=== PATIENT | female | born 1930 ===

== ENCOUNTER 2016-11-21 09:23 | Inpatient (IN) | payer MEDICARE, MEDICAID ==
[2016-11-21] MEDS ORDERED: Sodium Chloride 0.9% 500 ML IV ONE ×4 (10:12→12:30)
[2016-11-21] MEDS ORDERED: Iohexol 240 (50 ml) PO STA (10:26)
[2016-11-21] MEDS ORDERED: Iohexol 240 (50 ml) ONE (10:40)
[2016-11-21 10:46] LABS: BASO % 0.5 % (0.0-2.0); EOS # 0.1 K/uL (0.0-0.7); HEMATOCRIT 37.8 % (34.0-47.0); LYMPH # 0.9 K/uL (1.0-4.3); LYMPH % 13.5 % (20.0-40.0); MEAN CELL VOLUME 81.1 fL (81.0-99.0); MEAN CORPUSCULAR HEMOGLOBIN 26.6 pg (27.0-31.0); MEAN CORPUSCULAR HGB CONC 32.7 g/dL (33.0-37.0); MEAN PLATELET VOLUME 9.9 fL (7.2-11.7); MONO # 0.4 K/uL (0.0-0.8); MONO % 5.6 % (0.0-10.0); RED CELL DISTRIBUTION WIDTH 15.3 % (11.5-14.5); WHITE BLOOD COUNT 6.8 K/uL (4.8-10.8)
[2016-11-21 10:53] LABS: ALB/GLOB RATIO 1.1 (1.0-2.1); BILIRUBIN,TOTAL 0.5 mg/dL (0.2-1.3); TOTAL PROTEIN 7.5 g/dL (6.3-8.3)
[2016-11-21 10:54] LABS: CALCIUM 9.5 mg/dl (8.6-10.4)
[2016-11-21] MEDS ORDERED: Iodixanol 320 MG/ML 100 ML BOTTLE IV ONE (11:42)
[2016-11-21 11:58] LABS: URINE BILIRUBIN NEGATIVE (NEGATIVE); URINE BLOOD 1+ (NEGATIVE); URINE COLOR Straw (YELLOW); URINE GLUCOSE (UA) NORMAL (Normal); URINE KETONE NEGATIVE (NEGATIVE); URINE LEUKOCYTE ESTERASE TRACE Leu/uL (Negative); URINE PROTEIN NEGATIVE (NEGATIVE); URINE UROBILINOGEN NORMAL mg/dL (0.2-1.0)
--- NOTE | 2016-11-21 12:16 | CT ---
CT abdomen and pelvis History: Abdominal pain. Diarrhea. Comparison: None available. Technique: Multi-echo multiplanar sequences were performed through the abdomen and pelvis without the use of intravenous contrast. Findings: Fibrotic changes at the lung bases. Scattered areas of atelectasis. 5 millimeter calcified nodule at the left lung base. No pleural or pericardial effusion. Mixed attenuation lesion measuring 1.6 centimeters at the superior aspect of the right hepatic lobe of indeterminate etiology. This may be better evaluated with a multiphasic CT or MR. Contracted gallbladder with a large calculus within the gallbladder measuring 1.3 centimeters. Spleen is preserved. Adrenal glands are preserved. Mild fatty atrophy of the pancreas. Mild thickening and/or underdistention of the proximal duodenum. Right kidney: No calculi and or hydronephrosis. Left Kidney: 6 millimeter midpole hypoechoic cystic foci. Few scattered punctate too small to characterize foci within the remainder of the left kidney. Urinary bladder is preserved. Heterogeneous uterus. Fecal retention in the colon. Mild thickening and/or underdistention of the terminal ileum. Appendix is visualized. Contrast in the proximal appendix. Appendix measures up to 6 millimeters, within normal limits in width for size. Calcification and plaque within the aorta. Few shotty para-aortic and inguinal lymph nodes. Few shotty mesenteric lymph nodes. Degenerative changes in the spine. Sclerosis of the bilateral SI joints. Minimal retrolisthesis of L4 on L5. Patchy sclerosis within the lower thoracic spine. Impression: 1. Mixed attenuation lesion demonstrating a Hounsfield unit attenuation of 122 measuring 1.6 centimeters at the superior aspect of the right hepatic lobe of indeterminate etiology. This may be better evaluated with a multiphasic CT or MR. 2. Contracted gallbladder with a large calculus within the gallbladder measuring 1.3 centimeters. 3. Mild thickening and/or underdistention of the proximal duodenum. 4. Fecal retention in the colon. 5. Mild thickening and/or underdistention of the terminal ileum. Additional findings as above.
[2016-11-21 12:17] LABS: RBC URINE 2 /hpf (0-3); WBC URINE 1 /hpf (0-5)
--- NOTE | 2016-11-21 12:33 | C.PDOC ---
History Of Present Illness 85 y/o female brought to ED by son for evaluation of lower abdominal pain associated with nausea and vomiting for the last 2 days. Pt was seen by Dr. Rajesh Barroso, who instructed patient to come to ED for evaluation. As per son, pt have been having decreased PO intake, generalized weakness. He denies fever, chills, chest pain, shortness of breath, cough, diarrhea, dysuria, hematuria. Time Seen by Provider: 11/21/16 09:29 Chief Complaint (Nursing): Abdominal Pain History Per: Family (son at bedside ) History/Exam Limitations: language barrier Onset/Duration Of Symptoms: Days (2) Current Symptoms Are (Timing): Still Present Severity: Moderate Location Of Pain/Discomfort: RLQ, LLQ, Suprapubic Radiation Of Pain To:: None Quality Of Discomfort: "Pain" Associated Symptoms: Nausea, Vomiting, Loss Of Appetite. denies: Fever, Chills , Diarrhea, Back Pain, Chest Pain, Constipation, Urinary Symptoms Exacerbating Factors: None Alleviating Factors: None Recent travel outside of the [place]: No Additional History Per: Patient Abnormal Vaginal Bleeding: No Past Medical History Reviewed: Historical Data, Nursing Documentation, Vital Signs Vital Signs: Last Vital Signs Temp 98.4 F 11/23/16 15:35 Pulse 70 11/23/16 15:35 Resp 20 11/23/16 15:35 BP 131/73 11/23/16 15:35 Pulse Ox 98 11/23/16 15:35 - Medical History PMH: HTN Family History: States: No Known Family Hx - Social History Hx Alcohol Use: No Hx Substance Use: No - Immunization History Hx Tetanus Toxoid Vaccination: No Hx Influenza Vaccination: No Hx Pneumococcal Vaccination: No Review Of Systems Except As Marked, All Systems Reviewed And Found Negative. Constitutional: Positive for: Weakness. Negative for: Fever, Chills Cardiovascular: Negative for: Chest Pain, Palpitations Respiratory: Negative for: Cough, Shortness of Breath Gastrointestinal: Positive for: Nausea, Vomiting, Abdominal Pain. Negative for : Diarrhea, Constipation Genitourinary: Negative for: Dysuria, Frequency, Hematuria, Vaginal Discharge, Vaginal Bleeding Musculoskeletal: Negative for: Back Pain Neurological: Negative for: Weakness, Numbness, Headache, Dizziness Physical Exam - Physical Exam Appears: Well, Non-toxic, No Acute Distress Skin: Warm, Dry, No Rash Head: Normacephalic Eye(s): bilateral: Normal Inspection Oral Mucosa: Moist Neck: Supple Cardiovascular: Rhythm Regular Respiratory: Normal Breath Sounds, No Rales, No Rhonchi, No Wheezing Gastrointestinal/Abdominal: Bowel Sounds, Soft, Tenderness (suprapubic, LLQ TTP) , No Distention, No Guarding, No Rebound Back: No CVA Tenderness Extremity: Normal ROM, No Pedal Edema Neurological/Psych: Oriented x3, Normal Speech ED Course And Treatment - Laboratory Results Result Diagrams: 11/23/16 07:47 11/23/16 07:47 O2 Sat by Pulse Oximetry: 99 (on RA) Pulse Ox Interpretation: Normal - CT Scan/US Abd & Pelvis CT Other Rad Studies (CT/US): Read By Radiologist, Radiology Report Reviewed CT/US Interpretation: Accession No. : [id number]. Patient Name / ID : CÉSAR MONROE / [id number]. Exam Date : 11/21/2016 11:47:44 ( Approved ). Study Comment : Sex / Age : F / 85Y. Creator : Mikhail Barron MD. Dictator : Mikhail Barron MD. Hoistman : Freezing Room Worker : Mikhail Barron MD. Approver2 : Report Date : 11/21/2016 12:15:19. My Comment : . CT abdomen and pelvis. History: Abdominal pain. Diarrhea. Comparison: None available. Technique: Multi-echo multiplanar sequences were performed through the abdomen and pelvis without the use of intravenous contrast. Findings: Fibrotic changes at the lung bases. Scattered areas of atelectasis. 5 millimeter calcified nodule at the left lung base. No pleural or pericardial effusion. Mixed attenuation lesion measuring 1.6 centimeters at the superior aspect of the right hepatic lobe of indeterminate etiology. This may be better evaluated with a multiphasic CT or MR. Contracted gallbladder with a large calculus within the gallbladder measuring 1.3 centimeters. Spleen is preserved. Adrenal glands are preserved. Mild fatty atrophy of the pancreas. Mild thickening and/or underdistention of the proximal duodenum. Right kidney: No calculi and or hydronephrosis. Left Kidney: 6 millimeter midpole hypoechoic cystic foci. Few scattered punctate too small to characterize foci within the remainder of the left kidney. Urinary bladder is preserved. Heterogeneous uterus. Fecal retention in the colon. Mild thickening and/or underdistention of the terminal ileum. Appendix is visualized. Contrast in the proximal appendix. Appendix measures up to 6 millimeters, within normal limits in width for size. Calcification and plaque within the aorta. Few shotty para-aortic and inguinal lymph nodes. Few shotty mesenteric lymph nodes. Degenerative changes in the spine. Sclerosis of the bilateral SI joints. Minimal retrolisthesis of L4 on L5. Patchy sclerosis within the lower thoracic spine. Impression: 1. Mixed attenuation lesion demonstrating a Hounsfield unit attenuation of 122 measuring 1.6 centimeters at the superior aspect of the right hepatic lobe of indeterminate etiology. This may be better evaluated with a multiphasic CT or MR. 2. Contracted gallbladder with a large calculus within the gallbladder measuring 1.3 centimeters. 3. Mild thickening and/or underdistention of the proximal duodenum. 4. Fecal retention in the colon. 5. Mild thickening and/or underdistention of the terminal ileum. Additional findings as above. Progress Note: Blood work, UA, Abd & pelvis CT ordered and reviewed. Patient has several episodes of diarrhea in ED - Stool culture, ova and parasite, C diff toxin, stool leukocytes ordered. Patient was given IV NS bolus. - Physician Consult Information Physician Contacted: Meron Barroso Outcome Of Conversation: Discussed patient with PMD, he would like her admitted for dehydration, diarrhea, elevated Bun, duodenal/ileal thickening. Disposition - Disposition Disposition: HOSPITALIZED Disposition Time: 12:39 Condition: STABLE - Clinical Impression Clinical Impression: Dehydration, Generalized weakness, Mural thickening of small intestine, Elevated BUN - Scribe Statement The provider has reviewed the documentation as recorded by the Edin Barroso All medical record entries made by the Edin were at my direction and personally dictated by me. I have reviewed the chart and agree that the record accurately reflects my personal performance of the history, physical exam, medical decision making, and the department course for this patient. I have also personally directed, reviewed, and agree with the discharge instructions and disposition. Decision To Admit - Pt Status Changed To: Hospital Disposition Of: Inpatient - Admit Certification Admit to Inpatient:: After my assessment, the patient will require hospitalization for at least two midnights. This is because of the severity of symptoms shown, intensity of services needed, and/or the medical risk in this patient being treated as an outpatient. - InPatient: Physician Admission Certification:: see notes - . Bed Request Type: Regular Admitting Physician: Meron Barroso Patient Diagnosis: Dehydration, Generalized weakness, Elevated BUN, Mural thickening of small intestine
--- NOTE | 2016-11-21 18:50 | CP.PCM.HP ---
Present on Admission - Present on Admission Any Indicators Present on Admission: No Past Patient History - Past Medical History & Family History Past Medical History?: Yes - Past Social History Smoking Status: Never Smoked - CARDIAC Hx Hypertension: Yes - PULMONARY Hx Respiratory Disorders: No - NEUROLOGICAL Hx Neurological Disorder: No - HEENT Hx Cataracts: Yes - RENAL Hx Chronic Kidney Disease: No - ENDOCRINE/METABOLIC Hx Endocrine Disorders: No - HEMATOLOGICAL/ONCOLOGICAL Hx Blood Disorders: No - INTEGUMENTARY Hx Dermatological Problems: No - MUSCULOSKELETAL/RHEUMATOLOGICAL Hx Falls: No - GASTROINTESTINAL Hx Gastrointestinal Disorders: Yes Hx Constipation: Yes Hx Gastroesophageal Reflux: Yes - GENITOURINARY/GYNECOLOGICAL Hx Genitourinary Disorders: No - PSYCHIATRIC Hx Psychophysiologic Disorder: No Hx Substance Use: No - SURGICAL HISTORY Hx Surgeries: Yes Hx Cataract Extraction: Yes (BOTH EYES) - ANESTHESIA Hx Anesthesia: Yes Hx Anesthesia Reactions: No Hx Malignant Hyperthermia: No Has any member of the family had a problem w/ anesthesia?: No Meds Allergies/Adverse Reactions: Allergies Allergy/AdvReac Type Severity Reaction Status Date / Time No Known Allergies Allergy Verified 11/21/16 09:32 Physical Exam - Constitutional Appears: Well - Head Exam Head Exam: ATRAUMATIC, NORMAL INSPECTION, NORMOCEPHALIC - Eye Exam Eye Exam: EOMI, Normal appearance, PERRL - ENT Exam ENT Exam: Mucous Membranes Moist, Normal Exam - Neck Exam Neck exam: Positive for: Normal Inspection - Respiratory Exam Respiratory Exam: Decreased Breath Sounds - Cardiovascular Exam Cardiovascular Exam: REGULAR RHYTHM - GI/Abdominal Exam GI & Abdominal Exam: Diminished Bowel Sounds - Rectal Exam Rectal Exam: Deferred Results - Vital Signs Recent Vital Signs: Last Vital Signs Temp 97.5 F L 11/21/16 15:15 Pulse 86 11/21/16 15:15 Resp 20 11/21/16 15:15 BP 197/88 H 11/21/16 15:15 Pulse Ox 98 11/21/16 15:15 - Labs Result Diagrams: 11/21/16 10:39 11/21/16 10:39 Labs: Laboratory Results - last 24 hr 11/21/16 11/21/16 11/21/16 10:39 10:39 11:31 WBC 6.8 RBC 4.65 Hgb 12.4 Hct 37.8 MCV 81.1 MCH 26.6 L MCHC 32.7 L RDW 15.3 H Plt Count 171 MPV 9.9 Neut % (Auto) 79.4 H Lymph % (Auto) 13.5 L Stanley % (Auto) 5.6 Eos % (Auto) 1.0 Baso % (Auto) 0.5 Neut # 5.4 Lymph # 0.9 L Stanley # 0.4 Eos # 0.1 Baso # 0.0 Sodium 141 Potassium 5.0 Chloride 105 Carbon Dioxide 19 L Anion Gap 22 H BUN 19 H Creatinine 1.1 Est GFR ( Amer) 57 Est GFR (Non-Af Amer) 47 Random Glucose 98 Calcium 9.5 Total Bilirubin 0.5 AST 35 ALT 30 Alkaline Phosphatase 57 Total Protein 7.5 Albumin 4.0 Globulin 3.5 Albumin/Globulin Ratio 1.1 Lipase 78 Urine Color Straw Urine Clarity Clear Urine pH 5.0 Ur Specific [place] 1.005 Urine Protein Negative Urine Glucose (UA) Normal Urine Ketones Negative Urine Blood 1+ H Urine Nitrate Negative Urine Bilirubin Negative Urine Urobilinogen Normal Ur Leukocyte Esterase Trace Urine WBC (Auto) 1 Urine RBC (Auto) 2 Ur Squamous Epith Cells 1
[2016-11-22] MEDS: Pantoprazole 20 mg EC Tab PO SCH (10:07)
--- NOTE | 2016-11-22 10:20 | CP.PCM.CON ---
<Karma Solorzano - Last Filed: 11/22/16 10:13> History of Present Illness - History of Present Illness History of Present Illness: GI Fellow PGY4 Consult Note This is a 85yF with pmhx of HTN and heartburn presenting to the ED with complaints of diffuse abdominal pain and one episode of vomiting at home which started yesterday. Pt reports that she has severe constipation at home and has a BM 2-3 after taking medication and even when she does go she has to strain. Pt denies any diarrhea but per nursing pt has one episode of large watery diarrhea this am. Pt denies any further emesis and is tolerating breakfast this morning. Pt is still complaining of diffuse abdominal pain not associated with food intake. Pt has a CT scan done with contrast that shows a liver lesion, fecal retention, gall bladder with large stone. Stool study for C.diff was negative. Pt denies any fevers, chills nausea or vomiting at this time. ROS: A 12pt ROS was obtained and was negative except as above PmHx: HTN, heartburn PsHx: Denies SHx: Denies tobacco, ETOH FHx: Denies Past Patient History - Past Medical History & Family History Past Medical History?: Yes - Past Social History Smoking Status: Never Smoked - CARDIAC Hx Hypertension: Yes - PULMONARY Hx Respiratory Disorders: No - NEUROLOGICAL Hx Neurological Disorder: No - HEENT Hx Cataracts: Yes - RENAL Hx Chronic Kidney Disease: No - ENDOCRINE/METABOLIC Hx Endocrine Disorders: No - HEMATOLOGICAL/ONCOLOGICAL Hx Blood Disorders: No - INTEGUMENTARY Hx Dermatological Problems: No - MUSCULOSKELETAL/RHEUMATOLOGICAL Hx Falls: No - GASTROINTESTINAL Hx Gastrointestinal Disorders: Yes Hx Constipation: Yes Hx Gastroesophageal Reflux: Yes - GENITOURINARY/GYNECOLOGICAL Hx Genitourinary Disorders: No - PSYCHIATRIC Hx Psychophysiologic Disorder: No Hx Substance Use: No - SURGICAL HISTORY Hx Surgeries: Yes Hx Cataract Extraction: Yes (BOTH EYES) - ANESTHESIA Hx Anesthesia: Yes Hx Anesthesia Reactions: No Hx Malignant Hyperthermia: No Has any member of the family had a problem w/ anesthesia?: No Meds Allergies/Adverse Reactions: Allergies Allergy/AdvReac Type Severity Reaction Status Date / Time No Known Allergies Allergy Verified 11/21/16 09:32 - Medications Medications: Current Medications Losartan Potassium (Cozaar) 100 mg PO DAILY [facility] Last Admin: 11/22/16 10:07 Dose: 100 mg Pantoprazole Sodium (Protonix Ec Tab) 20 mg PO DAILY [facility] Last Admin: 11/22/16 10:07 Dose: 20 mg Physical Exam - Constitutional Appears: Non-toxic, No Acute Distress - Head Exam Head Exam: ATRAUMATIC, NORMAL INSPECTION, NORMOCEPHALIC - Eye Exam Eye Exam: EOMI, Normal appearance, PERRL Pupil Exam: PERRL - ENT Exam ENT Exam: Mucous Membranes Moist, Normal Exam - Neck Exam Neck exam: Positive for: Normal Inspection - Respiratory Exam Respiratory Exam: Clear to Auscultation Bilateral, NORMAL BREATHING PATTERN - Cardiovascular Exam Cardiovascular Exam: RRR, +S1, +S2 - GI/Abdominal Exam GI & Abdominal Exam: Normal Bowel Sounds, Soft, Tenderness. absent: Distended, Firm, Guarding, Organomegaly, Rigid - Rectal Exam Rectal Exam: Deferred - Extremities Exam Extremities exam: Positive for: full ROM, normal inspection. Negative for: pedal edema - Back Exam Back exam: NORMAL INSPECTION - Neurological Exam Neurological exam: Alert, Oriented x3 - Psychiatric Exam Psychiatric exam: Normal Affect, Normal Mood - Skin Skin Exam: Dry, Intact, Normal Color, Warm Results - Vital Signs Recent Vital Signs: Last Vital Signs Temp 98.4 F 11/22/16 07:19 Pulse 78 11/22/16 07:19 Resp 20 11/22/16 07:19 BP 193/83 H 11/22/16 07:19 Pulse Ox 95 11/22/16 07:19 - Labs Result Diagrams: 11/21/16 10:39 11/21/16 10:39 Labs: Laboratory Results - last 24 hr 11/21/16 11/21/16 11/21/16 10:39 10:39 11:31 WBC 6.8 RBC 4.65 Hgb 12.4 Hct 37.8 MCV 81.1 MCH 26.6 L MCHC 32.7 L RDW 15.3 H Plt Count 171 MPV 9.9 Neut % (Auto) 79.4 H Lymph % (Auto) 13.5 L Scott % (Auto) 5.6 Eos % (Auto) 1.0 Baso % (Auto) 0.5 Neut # 5.4 Lymph # 0.9 L Scott # 0.4 Eos # 0.1 Baso # 0.0 Sodium 141 Potassium 5.0 Chloride 105 Carbon Dioxide 19 L Anion Gap 22 H BUN 19 H Creatinine 1.1 Est GFR ( Amer) 57 Est GFR (Non-Af Amer) 47 Random Glucose 98 Calcium 9.5 Total Bilirubin 0.5 AST 35 ALT 30 Alkaline Phosphatase 57 Total Protein 7.5 Albumin 4.0 Globulin 3.5 Albumin/Globulin Ratio 1.1 Lipase 78 Urine Color Straw Urine Clarity Clear Urine pH 5.0 Ur Specific [place] 1.005 Urine Protein Negative Urine Glucose (UA) Normal Urine Ketones Negative Urine Blood 1+ H Urine Nitrate Negative Urine Bilirubin Negative Urine Urobilinogen Normal Ur Leukocyte Esterase Trace Urine WBC (Auto) 1 Urine RBC (Auto) 2 Ur Squamous Epith Cells 1 Stool Leukocytes, Qual C. difficile Ag & Toxin 11/21/16 11/21/16 13:00 13:00 WBC RBC Hgb Hct MCV MCH MCHC RDW Plt Count MPV Neut % (Auto) Lymph % (Auto) Scott % (Auto) Eos % (Auto) Baso % (Auto) Neut # Lymph # Scott # Eos # Baso # Sodium Potassium Chloride Carbon Dioxide Anion Gap BUN Creatinine Est GFR ( Amer) Est GFR (Non-Af Amer) Random Glucose Calcium Total Bilirubin AST ALT Alkaline Phosphatase Total Protein Albumin Globulin Albumin/Globulin Ratio Lipase Urine Color Urine Clarity Urine pH Ur Specific [place] Urine Protein Urine Glucose (UA) Urine Ketones Urine Blood Urine Nitrate Urine Bilirubin Urine Urobilinogen Ur Leukocyte Esterase Urine WBC (Auto) Urine RBC (Auto) Ur Squamous Epith Cells Stool Leukocytes, Qual Negative C. difficile Ag & Toxin Negative Assessment & Plan - Assessment and Plan (Free Text) Assessment: This is a 85yF presenting with abdominal pain and vomiting for one day. 1. Abdominal Pain 2. Diarrhea 3. Hx of constipation- fecal retention on CT scan 4. Liver lesion 5. Cholelithiasis on CT scan Plan: -Continue supportive care and avoid narcotics -Will order Abdominal Us for cholelithiasis on CT scan -Waiting for stool studies to come back C diff is negative -If no further diarrhea and concern for constipation with fecal retention on CT and hx, will start on bowel regime with miralax daily -Liver lesion-will order hepatitis panel, AFP and will need oupt workup -Continue regular diet -Will continue to follow pt closely <Brad Syed - Last Filed: 11/22/16 10:34> Meds - Medications Medications: Current Medications Losartan Potassium (Cozaar) 100 mg PO DAILY [facility] Last Admin: 11/22/16 10:07 Dose: 100 mg Pantoprazole Sodium (Protonix Ec Tab) 20 mg PO DAILY [facility] Last Admin: 11/22/16 10:07 Dose: 20 mg Results - Vital Signs Recent Vital Signs: Last Vital Signs Temp 98.4 F 11/22/16 07:19 Pulse 78 11/22/16 07:19 Resp 20 11/22/16 07:19 BP 193/83 H 11/22/16 07:19 Pulse Ox 95 11/22/16 07:19 - Labs Result Diagrams: 11/21/16 10:39 11/21/16 10:39 Labs: Laboratory Results - last 24 hr 11/21/16 11/21/16 11/21/16 10:39 10:39 11:31 WBC 6.8 RBC 4.65 Hgb 12.4 Hct 37.8 MCV 81.1 MCH 26.6 L MCHC 32.7 L RDW 15.3 H Plt Count 171 MPV 9.9 Neut % (Auto) 79.4 H Lymph % (Auto) 13.5 L Scott % (Auto) 5.6 Eos % (Auto) 1.0 Baso % (Auto) 0.5 Neut # 5.4 Lymph # 0.9 L Scott # 0.4 Eos # 0.1 Baso # 0.0 Sodium 141 Potassium 5.0 Chloride 105 Carbon Dioxide 19 L Anion Gap 22 H BUN 19 H Creatinine 1.1 Est GFR ( Amer) 57 Est GFR (Non-Af Amer) 47 Random Glucose 98 Calcium 9.5 Total Bilirubin 0.5 AST 35 ALT 30 Alkaline Phosphatase 57 Total Protein 7.5 Albumin 4.0 Globulin 3.5 Albumin/Globulin Ratio 1.1 Lipase 78 Urine Color Straw Urine Clarity Clear Urine pH 5.0 Ur Specific [place] 1.005 Urine Protein Negative Urine Glucose (UA) Normal Urine Ketones Negative Urine Blood 1+ H Urine Nitrate Negative Urine Bilirubin Negative Urine Urobilinogen Normal Ur Leukocyte Esterase Trace Urine WBC (Auto) 1 Urine RBC (Auto) 2 Ur Squamous Epith Cells 1 Stool Leukocytes, Qual C. difficile Ag & Toxin 11/21/16 11/21/16 13:00 13:00 WBC RBC Hgb Hct MCV MCH MCHC RDW Plt Count MPV Neut % (Auto) Lymph % (Auto) Scott % (Auto) Eos % (Auto) Baso % (Auto) Neut # Lymph # Scott # Eos # Baso # Sodium Potassium Chloride Carbon Dioxide Anion Gap BUN Creatinine Est GFR ( Amer) Est GFR (Non-Af Amer) Random Glucose Calcium Total Bilirubin AST ALT Alkaline Phosphatase Total Protein Albumin Globulin Albumin/Globulin Ratio Lipase Urine Color Urine Clarity Urine pH Ur Specific [place] Urine Protein Urine Glucose (UA) Urine Ketones Urine Blood Urine Nitrate Urine Bilirubin Urine Urobilinogen Ur Leukocyte Esterase Urine WBC (Auto) Urine RBC (Auto) Ur Squamous Epith Cells Stool Leukocytes, Qual Negative C. difficile Ag & Toxin Negative Attending/Attestation - Attestation I have personally seen and examined this patient.: Yes I have fully participated in the care of the patient.: Yes I have reviewed all pertinent clinical information: Yes Notes (Text): 11/22/16 10:27 I have seen and examined patient with GI fellow. Agree with above documentation with the following additions. In brief, this is an 85 year old female with history of HTN who presents to hospital with complaint of abdominal pain, vomiting, and change in bowel habits beginning one day ago. She describes an epigastric, sharp pain that radiates to RUQ and was associated with one episode of non-bloody emesis yesterday. The pain does not seem to be related to food consumption. She denies fever/chills, weight loss, rectal bleeding, sick contacts, or recent travel history. She is typically constipated at home and has a bowel movement once every 2-3 days though she has now developed loose watery diarrhea. No prior endoscopic evaluation. Family history: reviewed, patient denies history of colon cancer HTN Abdominal pain Diarrhea CT imaging reviewed by me showing large gallbladder calculus, distended stomach , thickening of terminal ileum, and left sided fecal retention. Also noted is a 1.6 cm hepatic lesion of unclear etiology. - Liquid diet as tolerated - Obtain stool studies (culture, c-difficile, O/P) - LFTs normal, obtain viral hepatitis panel, AFP. Patient will eventually benefit from triple phase liver imaging for further evaluation, which can be performed electively as outpatient. - Obtain abdominal US given ongoing RUQ abdominal pain with large GB calculus, consider surgical consultation - Will continue to monitor patient clinical course
--- NOTE | 2016-11-22 17:40 | US ---
Abdominal ultrasound History: Liver lesion. Cholelithiasis. Comparison: CT abdomen and pelvis dated 11/21/2016 Technique: Real-time sonography was performed through the abdomen. Findings: Liver: 10.3 centimeters in length. Increased echogenicity of the hepatic parenchymal cortex suggestive for fatty infiltration versus hepatic parenchymal disease. Liver lesion seen on recent CT scan was not well imaged or documented on this study. Further evaluation with a multiphasic CT or MR may be helpful for further evaluation. Gallbladder: Cholelithiasis with prominent gallbladder calculus measuring up to 2 centimeters. Normal wall thickness of 1.5 millimeters. Negative sonographic Levine's sign. Common bile duct measures 3.3 millimeters, within normal limits. Pancreas not well visualized. Spleen measures 10.4 centimeters in length, within normal limits. Visualized aorta and IVC are preserved. Right kidney: 7.6 x 3.6 x 4.4 centimeters. No calculi or hydronephrosis. Left kidney: 7.7 x 4.1 x 4.2 centimeters. Small hypoechoic focus which measures 7 x 7 x 9 millimeters with peripheral punctate echogenic foci. This may represent a small cyst with peripheral punctate calcification. This may be better evaluated with multiphasic CT scan. Impression: Very limited study secondary to gas distention of the patient and patient body habitus. Diffuse increased echogenicity of the hepatic parenchyma suggestive for fatty infiltration versus hepatic parenchymal disease. Clinical correlation. Liver lesion seen on CT scan was not well documented or appreciated on this study. Further evaluation with multiphasic CT or MR may be helpful if clinically indicated for further evaluation. Cholelithiasis with prominent gallbladder calculus measuring up to 2 centimeters. No gross wall thickening or edema. Pancreas not well visualized. 9 millimeter hypoechoic focus seen within the left kidney with peripheral punctate echogenic foci. This is of uncertain clinical etiology and may represent a small cyst with punctate peripheral calcification. Interval followup ultrasound and or correlation with multiphasic CT may be helpful for further evaluation if clinically indicated.
--- NOTE | 2016-11-22 17:49 | CP.PCM.PN ---
Subjective - Date & Time of Evaluation Date of Evaluation: 11/22/16 Time of Evaluation: 08:20 - Subjective Subjective: clinically same Objective - Vital Signs/Intake and Output Vital Signs (last 24 hours): Temp Pulse Resp BP Pulse Ox 97.9 F 80 20 203/70 H 98 11/22/16 15:00 11/22/16 15:00 11/22/16 15:00 11/22/16 15:00 11/22/16 15:00 Intake and Output: 11/22/16 11/22/16 06:59 18:59 Intake Total 200 400 Balance 200 400 - Medications Medications: Current Medications Enoxaparin Sodium (Lovenox) 40 mg SC DAILY [facility] Losartan Potassium (Cozaar) 100 mg PO DAILY [facility] Last Admin: 11/22/16 10:07 Dose: 100 mg Pantoprazole Sodium (Protonix Ec Tab) 20 mg PO DAILY [facility] Last Admin: 11/22/16 10:07 Dose: 20 mg Zolpidem Tartrate (Ambien) 5 mg PO HS PRN PRN Reason: Insomnia - Labs Labs: 11/21/16 10:39 11/21/16 10:39 - Constitutional Appears: Well - Head Exam Head Exam: ATRAUMATIC, NORMAL INSPECTION, NORMOCEPHALIC - Eye Exam Eye Exam: EOMI, Normal appearance, PERRL - ENT Exam ENT Exam: Mucous Membranes Moist, Normal Exam - Neck Exam Neck Exam: Full ROM, Normal Inspection. absent: Lymphadenopathy - Respiratory Exam Respiratory Exam: Decreased Breath Sounds - Cardiovascular Exam Cardiovascular Exam: REGULAR RHYTHM, +S1, +S2. absent: Murmur - GI/Abdominal Exam GI & Abdominal Exam: Diminished Bowel Sounds - Rectal Exam Rectal Exam: Deferred
[2016-11-22] MEDS: Enoxaparin 40 mg Syringe SC SCH (18:22)
[2016-11-23 07:14] VITALS: RESP 20
[2016-11-23 07:56] LABS: HEMATOCRIT 37.8 % (34.0-47.0); MEAN CELL VOLUME 81.4 fL (81.0-99.0); MEAN CORPUSCULAR HEMOGLOBIN 26.8 pg (27.0-31.0); MEAN CORPUSCULAR HGB CONC 32.9 g/dL (33.0-37.0); RED CELL DISTRIBUTION WIDTH 15.1 % (11.5-14.5)
[2016-11-23 08:18] LABS: ALB/GLOB RATIO 1.2 (1.0-2.1); BILIRUBIN,TOTAL 0.6 mg/dL (0.2-1.3); TOTAL PROTEIN 6.7 g/dL (6.3-8.3)
[2016-11-23 08:19] LABS: CALCIUM 9.3 mg/dl (8.6-10.4)
--- NOTE | 2016-11-23 09:11 | CP.PCM.PN ---
<Eliezer Barroso - Last Filed: 11/23/16 12:03> Subjective - Date & Time of Evaluation Date of Evaluation: 11/23/16 Time of Evaluation: 07:00 - Subjective Subjective: PGY 4 GI follow-up Pt seen and examined bedside States that her abd pain has sig improved tolerated clears yesterday states that she had a formed BM today in the AM Denies any nausea or vomiting RPS: 10 point ROS conducted, neg other than above Objective - Vital Signs/Intake and Output Vital Signs (last 24 hours): Temp Pulse Resp BP Pulse Ox 98 F 70 20 128/67 97 11/23/16 07:13 11/23/16 07:13 11/23/16 07:13 11/23/16 07:13 11/23/16 07:13 Intake and Output: 11/23/16 11/23/16 06:59 18:59 Intake Total 120 Output Total 1 Balance 119 - Medications Medications: Current Medications Clonidine HCl (Catapres) 0.1 mg PO Q8H PRN PRN Reason: for BP 180 sstolic and 110 jaylon Enoxaparin Sodium (Lovenox) 40 mg SC DAILY [facility] Last Admin: 11/22/16 18:22 Dose: 40 mg Losartan Potassium (Cozaar) 100 mg PO DAILY [facility] Last Admin: 11/22/16 10:07 Dose: 100 mg Pantoprazole Sodium (Protonix Ec Tab) 20 mg PO DAILY [facility] Last Admin: 11/22/16 10:07 Dose: 20 mg Polyethylene Glycol (Miralax) 17 gm PO BID [facility] Sennosides (Senokot Tab) 8.6 mg PO DAILY [facility] Zolpidem Tartrate (Ambien) 5 mg PO HS PRN PRN Reason: Insomnia Last Admin: 11/22/16 21:06 Dose: 5 mg - Labs Labs: 11/23/16 07:47 11/23/16 07:47 - Constitutional Appears: Well, No Acute Distress - Head Exam Head Exam: ATRAUMATIC, NORMOCEPHALIC - Eye Exam Eye Exam: Normal appearance - ENT Exam ENT Exam: Mucous Membranes Moist - Respiratory Exam Respiratory Exam: Clear to Ausculation Bilateral, NORMAL BREATHING PATTERN. absent: Rhonchi, Wheezes, Respiratory Distress - Cardiovascular Exam Cardiovascular Exam: REGULAR RHYTHM, +S1, +S2 - GI/Abdominal Exam GI & Abdominal Exam: Soft, Normal Bowel Sounds. absent: Guarding, Rigid, Tenderness, Organomegaly - Extremities Exam Extremities Exam: absent: Joint Swelling, Pedal Edema - Neurological Exam Neurological Exam: Alert, Awake, Oriented x3 - Psychiatric Exam Psychiatric exam: Normal Affect, Normal Mood - Skin Skin Exam: Dry, Intact, Normal Color, Warm Assessment and Plan - Assessment and Plan (Free Text) Assessment: This is a 85yF presenting with abdominal pain and vomiting for one day. Symptoms have resolved. 1. Abdominal Pain, etiology is likely due to constipation 2. Diarrhea, resolved?; overflow? 3. Hx of constipation- fecal retention on CT scan 4. Liver lesion 5. Cholelithiasis on CT scan Plan: -Continue supportive care and avoid narcotics -abd u/s revealed large non-obstructing GB stone >2cm -If no further diarrhea and concern for constipation with fecal retention on CT and hx, -Continue Miralax and senna as oupt -Continue regular diet -abd improving, can consult surgery for further recommendations in regards to asymptomatic cholelithiasis -F/U w/ Dr. Corral as oupt D/W Dr. Boggs <Ambrose [facility] - Last Filed: 11/23/16 12:24> Objective - Vital Signs/Intake and Output Vital Signs (last 24 hours): Temp Pulse Resp BP Pulse Ox 98 F 70 20 128/67 97 11/23/16 07:13 11/23/16 07:13 11/23/16 07:13 11/23/16 07:13 11/23/16 07:13 Intake and Output: 11/23/16 11/23/16 06:59 18:59 Intake Total 120 Output Total 1 Balance 119 - Medications Medications: Current Medications Clonidine HCl (Catapres) 0.1 mg PO Q8H PRN PRN Reason: for BP 180 sstolic and 110 jaylon Enoxaparin Sodium (Lovenox) 40 mg SC DAILY [facility] Last Admin: 11/23/16 09:27 Dose: 40 mg Losartan Potassium (Cozaar) 100 mg PO DAILY [facility] Last Admin: 11/23/16 10:48 Dose: 100 mg Pantoprazole Sodium (Protonix Ec Tab) 20 mg PO DAILY [facility] Last Admin: 11/23/16 09:28 Dose: 20 mg Polyethylene Glycol (Miralax) 17 gm PO BID [facility] Last Admin: 11/23/16 10:07 Dose: 17 gm Sennosides (Senokot Tab) 8.6 mg PO DAILY [facility] Last Admin: 11/23/16 10:07 Dose: 8.6 mg Zolpidem Tartrate (Ambien) 5 mg PO HS PRN PRN Reason: Insomnia Last Admin: 11/22/16 21:06 Dose: 5 mg - Labs Labs: 11/23/16 07:47 11/23/16 07:47 Attending/Attestation - Attestation I have personally seen and examined this patient.: Yes I have fully participated in the care of the patient.: Yes I have reviewed all pertinent clinical information, including history, physical exam and plan: Yes Notes (Text): 11/23/16 12:21 patient seen with GI fellow on rounds this am. This is a 85 yr old F presenting with abdominal pain and vomiting for one day in setting of constipation now resolved. Likely overflow diarrhea. C diff and wbc stool negative. Cholelithiasis on sonogram with normal LFT and no RUQ pain or fever. Continue supportive care and advance diet. Continue bowel regimen. No s/s of bowel obstruction. Abdominal exam unremarkable. Surgical evaluation for cholelithiasis. Will sign off now. Thank you for letting us participate in the care of your patient.
[2016-11-23] MEDS: Enoxaparin 40 mg Syringe SC SCH (09:27)
[2016-11-23] MEDS: Pantoprazole 20 mg EC Tab PO SCH (09:28)
[2016-11-23] MEDS: POLYETHYLENE GLYCOL 3350 17 GM/Dose PACKET PO SCH ×2 (10:07→18:06)
--- NOTE | 2016-11-23 12:20 | CP.PCM.CON ---
<Macie Claudio - Last Filed: 11/23/16 16:58> History of Present Illness - History of Present Illness History of Present Illness: General Surgery Consult Note for Dr. Mendoza Consulted for: Cholelithiasis Patient is an 85 year old female with PMHx of hypertension and heartburn who presented to the ED on 11/21 with complaints of diffused abdominal pain for one day and one episode of vomiting. Patient reports that she often has constipation at home. Patient had a CT of abdomen and pelvis with po and iv contrast which showed: 1.6 cm hepatic lesion, contracted gallbladder with a calculus measuring 1.3 cm, fecal retention, and mild thickening and/or under- distention of the proximal duodenum an terminal ileum. Ultrasound showed: cholelithiasis with prominent gallbladder calculus measuring up to 2 cm. No gross wall thickening or edema. Today patient says she is feeling much better and no longer has any abdominal pain. Patient had one soft bowel movement today as per nurse. Patient denies and nausea or vomiting. Patient has not vomited since the episode at home. Patient is able to tolerate her diet. Patient denies chest pain or shortness of breath. ROS: A 12pt ROS was obtained and was negative except as above PMH: hypertension, heartburn Psurg: none Social : denies alcohol, tobacco, drugs FHx: denies Review of Systems - Constitutional Constitutional: absent: Chills, Fever - EENT Nose/Mouth/Throat: absent: Sore Throat - Cardiovascular Cardiovascular: absent: Chest Pain, Dyspnea, Edema - Respiratory Respiratory: absent: Cough, Dyspnea, Stridor - Gastrointestinal Gastrointestinal: absent: Abdominal Pain, Constipation, Diarrhea, Nausea, Vomiting - Genitourinary Genitourinary: absent: Flank Pain - Musculoskeletal Musculoskeletal: absent: Joint Swelling, Myalgias - Integumentary Integumentary: absent: Lesions, Rash Past Patient History - Past Medical History & Family History Past Medical History?: Yes - Past Social History Smoking Status: Never Smoked - CARDIAC Hx Hypertension: Yes - PULMONARY Hx Respiratory Disorders: No - NEUROLOGICAL Hx Neurological Disorder: No - HEENT Hx Cataracts: Yes - RENAL Hx Chronic Kidney Disease: No - ENDOCRINE/METABOLIC Hx Endocrine Disorders: No - HEMATOLOGICAL/ONCOLOGICAL Hx Blood Disorders: No - INTEGUMENTARY Hx Dermatological Problems: No - MUSCULOSKELETAL/RHEUMATOLOGICAL Hx Falls: No - GASTROINTESTINAL Hx Gastrointestinal Disorders: Yes Hx Constipation: Yes Hx Gastroesophageal Reflux: Yes - GENITOURINARY/GYNECOLOGICAL Hx Genitourinary Disorders: No - PSYCHIATRIC Hx Psychophysiologic Disorder: No Hx Substance Use: No - SURGICAL HISTORY Hx Surgeries: Yes Hx Cataract Extraction: Yes (BOTH EYES) - ANESTHESIA Hx Anesthesia: Yes Hx Anesthesia Reactions: No Hx Malignant Hyperthermia: No Has any member of the family had a problem w/ anesthesia?: No Meds Allergies/Adverse Reactions: Allergies Allergy/AdvReac Type Severity Reaction Status Date / Time No Known Allergies Allergy Verified 11/21/16 09:32 - Medications Medications: Current Medications Clonidine HCl (Catapres) 0.1 mg PO Q8H PRN PRN Reason: for BP 180 sstolic and 110 jaylon Enoxaparin Sodium (Lovenox) 40 mg SC DAILY [facility] Last Admin: 11/23/16 09:27 Dose: 40 mg Losartan Potassium (Cozaar) 100 mg PO DAILY [facility] Last Admin: 11/23/16 10:48 Dose: 100 mg Pantoprazole Sodium (Protonix Ec Tab) 20 mg PO DAILY [facility] Last Admin: 11/23/16 09:28 Dose: 20 mg Polyethylene Glycol (Miralax) 17 gm PO BID [facility] Last Admin: 11/23/16 10:07 Dose: 17 gm Sennosides (Senokot Tab) 8.6 mg PO DAILY [facility] Last Admin: 11/23/16 10:07 Dose: 8.6 mg Zolpidem Tartrate (Ambien) 5 mg PO HS PRN PRN Reason: Insomnia Last Admin: 11/22/16 21:06 Dose: 5 mg Physical Exam - Constitutional Appears: Non-toxic, No Acute Distress - Head Exam Head Exam: ATRAUMATIC, NORMAL INSPECTION, NORMOCEPHALIC - Eye Exam Eye Exam: EOMI, Normal appearance - ENT Exam ENT Exam: Mucous Membranes Moist - Neck Exam Neck exam: Positive for: Full Rom. Negative for: Tenderness - Respiratory Exam Respiratory Exam: Clear to Auscultation Bilateral, NORMAL BREATHING PATTERN. absent: Rales, Rhonchi, Wheezes, Respiratory Distress, Stridor - Cardiovascular Exam Cardiovascular Exam: REGULAR RHYTHM, RRR - GI/Abdominal Exam GI & Abdominal Exam: Normal Bowel Sounds, Soft. absent: Firm, Guarding, Rigid, Tenderness - Extremities Exam Extremities exam: Positive for: normal inspection. Negative for: pedal edema, tenderness - Neurological Exam Neurological exam: Alert, Oriented x3 - Psychiatric Exam Psychiatric exam: Normal Affect, Normal Mood - Skin Skin Exam: Intact, Normal Color, Warm Results - Vital Signs Recent Vital Signs: Last Vital Signs Temp 98 F 11/23/16 07:13 Pulse 70 11/23/16 07:13 Resp 20 11/23/16 07:13 BP 128/67 11/23/16 07:13 Pulse Ox 97 11/23/16 07:13 - Labs Result Diagrams: 11/23/16 07:47 11/23/16 07:47 Labs: Laboratory Results - last 24 hr 11/22/16 11/22/16 11/23/16 11:14 11:14 07:47 WBC 8.0 RBC 4.64 Hgb 12.4 Hct 37.8 MCV 81.4 MCH 26.8 L MCHC 32.9 L RDW 15.1 H Plt Count 195 MPV 10.0 Sodium Potassium Chloride Carbon Dioxide Anion Gap BUN Creatinine Est GFR ( Amer) Est GFR (Non-Af Amer) Random Glucose Calcium Total Bilirubin AST ALT Alkaline Phosphatase Total Protein Albumin Globulin Albumin/Globulin Ratio Alpha Fetoprotein 3.2 Hepatitis A IgM Ab Negative Hep Bs Antigen Negative Hep B Core IgM Ab Negative Hepatitis C Antibody Negative 11/23/16 07:47 WBC RBC Hgb Hct MCV MCH MCHC RDW Plt Count MPV Sodium 140 Potassium 5.0 Chloride 106 Carbon Dioxide 24 Anion Gap 15 BUN 17 Creatinine 1.9 H Est GFR ( Amer) 30 Est GFR (Non-Af Amer) 25 Random Glucose 87 Calcium 9.3 Total Bilirubin 0.6 AST 32 ALT 31 Alkaline Phosphatase 55 Total Protein 6.7 Albumin 3.6 Globulin 3.1 Albumin/Globulin Ratio 1.2 Alpha Fetoprotein Hepatitis A IgM Ab Hep Bs Antigen Hep B Core IgM Ab Hepatitis C Antibody Assessment & Plan - Assessment and Plan (Free Text) Assessment: Patient is an 85 year old female with PMHx of hypertension and heartburn who presented to the ED on 11/21 with complaints of diffused abdominal pain and found to have a calculus within the gallbladder on CT and ultrasound. Plan: -No signs of cholecystitis on imaging -Abdominal pain resolved -No surgical intervention at this time <Uriel Mendoza - Last Filed: 11/25/16 11:55> Results - Vital Signs Recent Vital Signs: Last Vital Signs Temp 98.1 F 11/24/16 16:00 Pulse 62 11/24/16 16:00 Resp 20 11/24/16 16:00 BP 121/51 L 11/24/16 16:00 Pulse Ox 98 11/24/16 16:00 - Labs Result Diagrams: 11/24/16 07:45 11/24/16 07:45 Attending/Attestation - Attestation I have personally seen and examined this patient.: Yes I have fully participated in the care of the patient.: Yes I have reviewed all pertinent clinical information: Yes Notes (Text): 11/25/16 11:54 Pt was seen and examined at bedside Agree with above note and assessment Pt with incidental cholelithiasis and constipation Pt had bowel movement. Abdominal pain is resolved No need for surgical intervention at present. Plan d.w pt in detail Risk and benefit explained in detail.
--- NOTE | 2016-11-23 18:19 | CP.PCM.PN ---
Subjective - Date & Time of Evaluation Date of Evaluation: 11/23/16 Time of Evaluation: 08:00 - Subjective Subjective: clinically same Objective - Vital Signs/Intake and Output Vital Signs (last 24 hours): Temp Pulse Resp BP Pulse Ox 98.4 F 70 20 131/73 99 11/23/16 15:35 11/23/16 15:35 11/23/16 15:35 11/23/16 15:35 11/23/16 17:03 Intake and Output: 11/23/16 11/23/16 06:59 18:59 Intake Total 120 Output Total 1 Balance 119 - Medications Medications: Current Medications Clonidine HCl (Catapres) 0.1 mg PO Q8H PRN PRN Reason: for BP 180 sstolic and 110 jaylon Enoxaparin Sodium (Lovenox) 40 mg SC DAILY [facility] Last Admin: 11/23/16 09:27 Dose: 40 mg Losartan Potassium (Cozaar) 100 mg PO DAILY [facility] Last Admin: 11/23/16 10:48 Dose: 100 mg Pantoprazole Sodium (Protonix Ec Tab) 20 mg PO DAILY [facility] Last Admin: 11/23/16 09:28 Dose: 20 mg Polyethylene Glycol (Miralax) 17 gm PO BID [facility] Last Admin: 11/23/16 18:06 Dose: 17 gm Sennosides (Senokot Tab) 8.6 mg PO DAILY [facility] Last Admin: 11/23/16 10:07 Dose: 8.6 mg Zolpidem Tartrate (Ambien) 5 mg PO HS PRN PRN Reason: Insomnia Last Admin: 11/22/16 21:06 Dose: 5 mg - Labs Labs: 11/23/16 07:47 11/23/16 07:47 - Constitutional Appears: Well - Head Exam Head Exam: ATRAUMATIC, NORMAL INSPECTION, NORMOCEPHALIC - Eye Exam Eye Exam: EOMI, Normal appearance, PERRL Pupil Exam: NORMAL ACCOMODATION, PERRL - ENT Exam ENT Exam: Mucous Membranes Moist, Normal Exam - Neck Exam Neck Exam: Full ROM, Normal Inspection. absent: Lymphadenopathy - Respiratory Exam Respiratory Exam: Decreased Breath Sounds - Cardiovascular Exam Cardiovascular Exam: REGULAR RHYTHM, +S1, +S2 - GI/Abdominal Exam GI & Abdominal Exam: Soft, Diminished Bowel Sounds - Rectal Exam Rectal Exam: Deferred
[2016-11-24 07:52] LABS: BASO % 0.7 % (0.0-2.0); EOS # 0.1 K/uL (0.0-0.7); EOS % 1.8 % (0.0-4.0); HEMATOCRIT 38.9 % (34.0-47.0); LYMPH # 1.3 K/uL (1.0-4.3); LYMPH % 23.4 % (20.0-40.0); MEAN CELL VOLUME 80.6 fL (81.0-99.0); MEAN CORPUSCULAR HEMOGLOBIN 26.7 pg (27.0-31.0); MEAN CORPUSCULAR HGB CONC 33.1 g/dL (33.0-37.0); MEAN PLATELET VOLUME 9.7 fL (7.2-11.7); MONO # 0.3 K/uL (0.0-0.8); MONO % 5.3 % (0.0-10.0); RED CELL DISTRIBUTION WIDTH 15.3 % (11.5-14.5); WHITE BLOOD COUNT 5.4 K/uL (4.8-10.8)
[2016-11-24 08:00] VITALS: PULSE 62; TEMP 98.1
[2016-11-24 08:27] LABS: POTASSIUM 4.9 mmol/L (3.6-5.2)
[2016-11-24 08:29] LABS: ALB/GLOB RATIO 1.1 (1.0-2.1); BILIRUBIN,TOTAL 0.5 mg/dL (0.2-1.3); TOTAL PROTEIN 6.9 g/dL (6.3-8.3)
[2016-11-24 08:30] LABS: CALCIUM 9.8 mg/dl (8.6-10.4)
[2016-11-24] MEDS: POLYETHYLENE GLYCOL 3350 17 GM/Dose PACKET PO SCH (10:13)
[2016-11-24] MEDS: Enoxaparin 40 mg Syringe SC SCH (10:13)
[2016-11-24] MEDS: Pantoprazole 20 mg EC Tab PO SCH (10:14)
--- NOTE | 2016-11-24 13:11 | CP.PCM.PN ---
Subjective - Date & Time of Evaluation Date of Evaluation: 11/24/16 Time of Evaluation: 13:10 Objective - Vital Signs/Intake and Output Vital Signs (last 24 hours): Temp Pulse Resp BP Pulse Ox 98.1 F 62 20 159/79 H 95 11/24/16 07:58 11/24/16 07:58 11/24/16 07:58 11/24/16 07:58 11/24/16 07:58 Intake and Output: 11/24/16 11/24/16 06:59 18:59 Intake Total 150 Balance 150 - Medications Medications: Current Medications Clonidine HCl (Catapres) 0.1 mg PO Q8H PRN PRN Reason: for BP 180 sstolic and 110 jaylon Enoxaparin Sodium (Lovenox) 40 mg SC DAILY [facility] Last Admin: 11/24/16 10:13 Dose: 40 mg Losartan Potassium (Cozaar) 100 mg PO DAILY [facility] Last Admin: 11/24/16 10:14 Dose: 100 mg Pantoprazole Sodium (Protonix Ec Tab) 20 mg PO DAILY [facility] Last Admin: 11/24/16 10:14 Dose: 20 mg Polyethylene Glycol (Miralax) 17 gm PO BID [facility] Last Admin: 11/24/16 10:13 Dose: 17 gm Sennosides (Senokot Tab) 8.6 mg PO DAILY [facility] Last Admin: 11/24/16 10:14 Dose: 8.6 mg Zolpidem Tartrate (Ambien) 5 mg PO HS PRN PRN Reason: Insomnia Last Admin: 11/23/16 21:46 Dose: 5 mg - Labs Labs: 11/24/16 07:45 11/24/16 07:45
[2016-11-24 16:04] VITALS: BP 121/51; O2SAT 98
--- NOTE | 2016-11-24 20:03 | CP.PCM.PN ---
Subjective - Date & Time of Evaluation Date of Evaluation: 11/24/16 Time of Evaluation: 07:40 - Subjective Subjective: clinically same Objective - Vital Signs/Intake and Output Vital Signs (last 24 hours): Temp Pulse Resp BP Pulse Ox 98.1 F 62 20 121/51 L 98 11/24/16 16:00 11/24/16 16:00 11/24/16 16:00 11/24/16 16:00 11/24/16 16:00 Intake and Output: 11/24/16 11/25/16 18:59 06:59 Intake Total 500 Balance 500 - Medications Medications: Current Medications Clonidine HCl (Catapres) 0.1 mg PO Q8H PRN PRN Reason: for BP 180 sstolic and 110 jaylon Enoxaparin Sodium (Lovenox) 40 mg SC DAILY [facility] Last Admin: 11/24/16 10:13 Dose: 40 mg Losartan Potassium (Cozaar) 100 mg PO DAILY [facility] Last Admin: 11/24/16 10:14 Dose: 100 mg Pantoprazole Sodium (Protonix Ec Tab) 20 mg PO DAILY [facility] Last Admin: 11/24/16 10:14 Dose: 20 mg Polyethylene Glycol (Miralax) 17 gm PO BID [facility] Last Admin: 11/24/16 10:13 Dose: 17 gm Sennosides (Senokot Tab) 8.6 mg PO DAILY [facility] Last Admin: 11/24/16 10:14 Dose: 8.6 mg Zolpidem Tartrate (Ambien) 5 mg PO HS PRN PRN Reason: Insomnia Last Admin: 11/23/16 21:46 Dose: 5 mg - Labs Labs: 11/24/16 07:45 11/24/16 07:45 - Constitutional Appears: Well - Head Exam Head Exam: ATRAUMATIC, NORMAL INSPECTION, NORMOCEPHALIC - Eye Exam Eye Exam: EOMI, Normal appearance, PERRL Pupil Exam: NORMAL ACCOMODATION, PERRL - ENT Exam ENT Exam: Mucous Membranes Moist, Normal Exam - Neck Exam Neck Exam: Full ROM, Normal Inspection. absent: Lymphadenopathy - Respiratory Exam Respiratory Exam: Decreased Breath Sounds - Cardiovascular Exam Cardiovascular Exam: REGULAR RHYTHM, +S1, +S2 - GI/Abdominal Exam GI & Abdominal Exam: Soft, Diminished Bowel Sounds - Rectal Exam Rectal Exam: Deferred
== END 2016-11-24 19:05 | DRG 446 ==
LOC: C.ER 09:23 → C.3T 12:39
PROVIDERS: ADMIT Internal Medicine Nephrology; ATTEND Internal Medicine Nephrology
DX: K80.20 Calculus of gallbladder without cholecystitis without obstruction (principal); E86.0 Dehydration; R53.81 Other malaise; K59.00 Constipation, unspecified; I10 Essential (primary) hypertension; R19.7 Diarrhea, unspecified; K21.9 Gastro-esophageal reflux disease without esophagitis; K76.9 Liver disease, unspecified